=== PATIENT | male | born 1960 | race Asian ===

== ENCOUNTER 2024-11-30 11:00 | Emergency (ER) | payer SELFPAY ==
[~2024-11-30] VITALS: Ht 177.8 cm; Wt 80.9 kg
[2024-11-30 11:07] VITALS: BP 134/74; PULSE 108; RESP 18; TEMP 101.7; O2SAT 96
[2024-11-30 12:16] LABS: COVID AG,FIA SOURCE NASAL SWAB
[2024-11-30 13:05] LABS: INFLUENZA TYPE A NEGATIVE FOR TYPE A (NEGATIVE); INFLUENZA TYPE B NEGATIVE FOR TYPE B (NEGATIVE); SARS-COV2 (COVID) ANTIGEN,FIA Negative (Negative)
== END 2024-11-30 12:41 | disposition left against medical advice (07) ==
LOC: EMS 11:00
DX: R05.9 Cough, unspecified (principal); M79.10 Myalgia, unspecified site; Z20.822 Contact with and (suspected) exposure to COVID-19; Z53.21 Procedure and treatment not carried out due to patient leaving prior to being seen by health care provider
CPT/HCPCS: 87804